=== PATIENT | male | born 1985 | race Two or more races ===

== ENCOUNTER 2019-06-12 17:04 | Emergency (ER) | payer SELFPAY ==
[~2019-06-12] VITALS: Ht 167.6 cm; Wt 65.8 kg
[2019-06-12] MEDS ORDERED: AMPH20CA3 PO (17:12)
[2019-06-12 17:15] VITALS: BP 147/72
== END 2019-06-12 17:40 | disposition home or self-care (01) ==
LOC: ER 17:04
DX: S01.01XD Laceration without foreign body of scalp, subsequent encounter (principal); Z60.2 Problems related to living alone; Z79.899 Other long term (current) drug therapy; X58.XXXD Exposure to other specified factors, subsequent encounter